=== PATIENT | female | born 1975 | race Caucasian/White ===

== ENCOUNTER 2021-05-22 17:19 | Emergency (ER) | payer MEDICAID ==
[~2021-05-22] VITALS: Ht 162.6 cm; Wt 60.0 kg
[2021-05-22 18:11] LABS: BASOPHILS % 0.6 % (0.0-2.0); EOSINOPHILS % 0.2 % (0.0-5.0); HEMOGLOBIN. 12.3 g/dL (12.0-16.0); LYMPHOCYTES % 37.3 % (20.0-50.0); MEAN CORPUSCULAR VOLUME 90.7 fL (81.0-99.0); MEAN PLATELET VOLUME 7.1 fl (7.4-10.4); NEUTROPHILS % 57.9 % (40.0-76.0); PLATELET 303 x1000/uL (130-400); RED BLOOD CELL COUNT 3.97 mill/uL (4.2-5.4); RED CELL DISTRIBUTION WIDTH 13.7 % (11.6-14.6)
[2021-05-22 18:19] LABS: CHLORIDE 112 mEq/L (98-107)
[2021-05-22 18:23] LABS: ETHANOL BLOOD 98 mg/dL; HCG SCREEN NEGATIVE
[2021-05-22 19:45] LABS: *AMPHETAMINES SCREEN URINE NEGATIVE (NEGATIVE); *BARBITURATES SCREEN URINE NEGATIVE (NEGATIVE); *BENZODIAZEPINES SCREEN URINE NEGATIVE (NEGATIVE)
[2021-05-22 19:47] LABS: CANNABINOID URINE SCREEN NEGATIVE (NEGATIVE); METHADONE URINE SCREEN NEGATIVE (NEGATIVE); OPIATES URINE SCREEN NEGATIVE (NEGATIVE); PHENCYCLIDINE URINE SCREEN NEGATIVE (NEGATIVE)
[2021-05-22 19:57] LABS: *COCAINE SCREEN URINE PRESUMTIVE POSITIVE (NEGATIVE)
[2021-05-22] MEDS ORDERED: ASPI-1497 MT (23:07)
[2021-05-22 23:40] VITALS: BP 101/64
== END 2021-05-22 23:43 | disposition home or self-care (01) ==
LOC: ER 17:19
DX: R07.89 Other chest pain (principal); F14.10 Cocaine abuse, uncomplicated; I10 Essential (primary) hypertension; Z79.82 Long term (current) use of aspirin; Z87.828 Personal history of other (healed) physical injury and trauma; Z98.890 Other specified postprocedural states
CPT/HCPCS: 36415; 71045; 80053; 80305; 80320; 83880; 84484; 84703; 85025; 93005; 99285; G0480

== ENCOUNTER 2021-10-25 22:14 | Emergency (ER) | payer MEDICAID ==
[~2021-10-25] VITALS: Ht 162.6 cm; Wt 90.0 kg
[~2021-10-25 22:14] MED LIST: ASPI-1497 MT
[2021-10-25 23:37] LABS: BASOPHILS % 0.7 % (0.0-2.0); EOSINOPHILS % 2.5 % (0.0-5.0); HEMATOCRIT. 36.3 % (36.0-48.0); LYMPHOCYTES % 45.9 % (20.0-50.0); MEAN CORPUSCULAR HEMOGLOBIN 30.5 pg (28.0-32.0); MEAN CORPUSCULAR VOLUME 92.2 fL (81.0-99.0); MEAN PLATELET VOLUME 7.5 fl (7.4-10.4); MONOCYTES % 6.1 % (2.0-8.0); NEUTROPHILS % 44.8 % (40.0-76.0); PLATELET 310 x1000/uL (130-400); RED BLOOD CELL COUNT 3.93 mill/uL (4.2-5.4); RED CELL DISTRIBUTION WIDTH 13.9 % (11.6-14.6)
[2021-10-25 23:42] LABS: CHLORIDE 109 mEq/L (98-107)
[2021-10-26 02:00] VITALS: BP 103/69
== END 2021-10-26 02:45 | disposition home or self-care (01) ==
LOC: ER 22:14
DX: R07.89 Other chest pain (principal); I10 Essential (primary) hypertension
CPT/HCPCS: 36415; 71045; 80053; 83880; 84484; 85025; 93005; 99285

== ENCOUNTER 2022-05-30 16:53 | Emergency (ER) | payer MEDICAID ==
[~2022-05-30] VITALS: Ht 167.6 cm; Wt 76.0 kg
[2022-05-30] MEDS ORDERED: IBUPROFEN 600MG TABLET PO STA (17:15)
[2022-05-30] MEDS ORDERED: NITROGLYCERIN OINT 1GM/INCH UDPKT TD ONE (17:15)
[2022-05-30 18:30] VITALS: BP 103/66
[2022-05-30 18:34] LABS: BASOPHILS % 0.6 % (0.0-2.0); EOSINOPHILS % 0.6 % (0.0-5.0); HEMOGLOBIN. 12.4 g/dL (12.0-16.0); MEAN CORPUSCULAR HEMOGLOBIN 30.5 pg (28.0-32.0); MEAN CORPUSCULAR VOLUME 91.1 fL (81.0-99.0); MEAN PLATELET VOLUME 8.2 fl (7.4-10.4); NEUTROPHILS % 57.8 % (40.0-76.0); PLATELET 301 x1000/uL (130-400); RED BLOOD CELL COUNT 4.06 mill/uL (4.2-5.4); RED CELL DISTRIBUTION WIDTH 13.8 % (11.6-14.6)
[2022-05-30 18:42] LABS: CHLORIDE 108 mEq/L (98-107)
[2022-05-30 18:45] LABS: HCG SCREEN NEGATIVE
[2022-05-30] MEDS ORDERED: IBUP-2028 MT (19:50)
== END 2022-05-30 20:13 | disposition home or self-care (01) ==
LOC: ER 16:53
DX: R07.89 Other chest pain (principal); I25.2 Old myocardial infarction; Z98.890 Other specified postprocedural states
CPT/HCPCS: 36415; 71045; 80053; 83880; 84484; 84703; 85025; 85379; 93970; 99285; Z7610

== ENCOUNTER 2022-09-20 18:08 | Emergency (ER) | payer MEDICAID ==
[~2022-09-20] VITALS: Ht 172.7 cm; Wt 73.0 kg
[~2022-09-20 18:08] MED LIST changes: +IBUP-2028 MT
[2022-09-20 18:10] VITALS: O2SAT 100
[2022-09-20] MEDS ORDERED: METHOCARBAMOL 500MG TABLET PO NR (18:45)
[2022-09-20] MEDS ORDERED: KETOROLAC 30MG/ML VIAL IV ONE (18:45)
[2022-09-20] MEDS ORDERED: METHOCARBAMOL 750MG TABLET PO SCH (18:45)
[2022-09-20] MEDS ORDERED: ACETAMINOPHEN 325MG TABLET PO ONE (18:45)
[2022-09-20 18:52] VITALS: TEMP 98.3
[2022-09-20 19:07] LABS: BASOPHILS % 1.2 % (0.0-2.0); EOSINOPHILS % 2.3 % (0.0-5.0); HEMATOCRIT. 34.8 % (36.0-48.0); HEMOGLOBIN. 11.7 g/dL (12.0-16.0); LYMPHOCYTES % 39.1 % (20.0-50.0); MEAN CORPUSCULAR HEMOGLOBIN 30.6 pg (28.0-32.0); MEAN CORPUSCULAR VOLUME 90.7 fL (81.0-99.0); MEAN PLATELET VOLUME 8.1 fl (7.4-10.4); MONOCYTES % 5.5 % (2.0-8.0); NEUTROPHILS % 51.9 % (40.0-76.0); PLATELET 308 x1000/uL (130-400); RED BLOOD CELL COUNT 3.84 mill/uL (4.2-5.4); RED CELL DISTRIBUTION WIDTH 13.3 % (11.6-14.6)
[2022-09-20 19:12] LABS: CHLORIDE 112 mEq/L (98-107)
[2022-09-20 19:15] LABS: D-DIMER 0.26 mg/L FEU (<0.50); INR 0.9; PROTHROMBIN TIME 10.2 sec (9.6-11.0)
[2022-09-20 19:23] LABS: ETHANOL BLOOD < 10 mg/dL (-10)
[2022-09-20 19:25] LABS: HCG SCREEN NEGATIVE
[2022-09-20 19:47] LABS: COLOR URINE YELLOW (YELLOW); KETONES URINE NEGATIVE (NEGATIVE); LEUKOCYTE ESTERASE URINE NEGATIVE (NEGATIVE); NITRITE URINE NEGATIVE (NEGATIVE); OCCULT BLOOD URINE 2+ (NEGATIVE); PH URINE 5.5 (4.5-8.0); PROTEIN URINE NEGATIVE (NEGATIVE); SPECIFIC GRAVITY URINE 1.009 (1.005-1.030); UROBILINOGEN URINE 0.2 E.U./dL (0.2-1.0)
[2022-09-20 20:00] VITALS: BP 102/64; PULSE 59; RESP 15
[2022-09-20 20:01] LABS: CLARITY URINE CLEAR (CLEAR)
[2022-09-20] MEDS ORDERED: TOPUD PO (20:14)
[2022-09-20] MEDS ORDERED: METH-653 MT (20:14)
[2022-09-20] MEDS ORDERED: LIDO1ADH23 TP (20:14)
[2022-09-20] MEDS ORDERED: NITR-87 MT (20:14)
[2022-09-20] MEDS ORDERED: IBUP-2028 MT (20:14)
[2022-09-20] MEDS ORDERED: NITROFURANTOIN 100MG M/M CAPSULE PO ONE (20:15)
[2022-09-20 20:16] LABS: *AMPHETAMINES SCREEN URINE NEGATIVE (NEGATIVE); *BARBITURATES SCREEN URINE NEGATIVE (NEGATIVE); *BENZODIAZEPINES SCREEN URINE NEGATIVE (NEGATIVE); CANNABINOID URINE SCREEN NEGATIVE (NEGATIVE); METHADONE URINE SCREEN NEGATIVE (NEGATIVE); OPIATES URINE SCREEN NEGATIVE (NEGATIVE); PHENCYCLIDINE URINE SCREEN NEGATIVE (NEGATIVE)
[2022-09-20 20:20] LABS: *COCAINE SCREEN URINE PRESUMTIVE POSITIVE (NEGATIVE)
== END 2022-09-20 20:32 | disposition home or self-care (01) ==
LOC: ER 18:08
DX: R07.89 Other chest pain (principal); N39.0 Urinary tract infection, site not specified; I25.2 Old myocardial infarction; Z79.899 Other long term (current) drug therapy; Z20.822 Contact with and (suspected) exposure to COVID-19
CPT/HCPCS: 80053; 80305; 81003; 81025; 80320; 84703; 83880; 83690; 85025; 85379; 85610; 84484; 87804 ×2; 36415; 71045; 93005; 96374; 99285; 87426; J1885; C9803; Z7610; G0480

== ENCOUNTER 2022-10-27 08:27 | Emergency (ER) | payer MEDICAID ==
[~2022-10-27] VITALS: Ht 157.5 cm; Wt 69.9 kg
[~2022-10-27 08:27] MED LIST changes: +LIDO1ADH23 TP; +METH-653 MT; +NITR-87 MT; +TOPUD PO
[2022-10-27 08:50] VITALS: TEMP 98; O2SAT 98
[2022-10-27 09:15] VITALS: BP 113/65; PULSE 99; RESP 16
[2022-10-27] MEDS ORDERED: IBUPROFEN 800MG TABLET PO ONE (09:15)
[2022-10-27] MEDS ORDERED: HYDROCODONE/ACETAMINOPHEN 10/325MG TABLET PO ONE (09:15)
[2022-10-27] MEDS ORDERED: IBUP-2030 MT (09:50)
[2022-10-28] MEDS ORDERED: AMOX1TAB16 MT (23:52)
[2022-10-28] MEDS ORDERED: NAPR-681 MT (23:52)
[2022-10-28] MEDS ORDERED: BO1 TP (23:52)
== END 2022-10-27 10:44 | disposition home or self-care (01) ==
LOC: ER 08:27
DX: S83.92XA Sprain of unspecified site of left knee, initial encounter (principal); I25.2 Old myocardial infarction; Z98.51 Tubal ligation status; Z90.49 Acquired absence of other specified parts of digestive tract; Z79.899 Other long term (current) drug therapy; W18.39XA Other fall on same level, initial encounter; Y93.89 Activity, other specified; Y92.89 Other specified places as the place of occurrence of the external cause; Y99.8 Other external cause status
CPT/HCPCS: 73562; 99283

== ENCOUNTER 2022-10-28 19:05 | Emergency (ER) | payer MEDICAID ==
[~2022-10-28] VITALS: Ht 167.6 cm; Wt 82.0 kg
[~2022-10-28 19:05] MED LIST changes: +IBUP-2030 MT
[2022-10-28 19:11] VITALS: BP 118/84; O2SAT 100
[2022-10-28] MEDS ORDERED: LIDOCAINE HCL 1% 20ML VIAL (Pyxis) INJ INFIL ONE (20:30)
[2022-10-28] MEDS ORDERED: TETANUS, DIPHTHERIA, PERTUSSIS VAC/PF 0.5ML (>10YR OLD) IM ONE (20:30)
[2022-10-28] MEDS ORDERED: HYDROCODONE/ACETAMINOPHEN 5/325MG TABLET PO ONE (20:30)
[2022-10-28] MEDS ORDERED: AMOXICILLIN/POTASSIUM CLAVULANATE 875/125MG TAB PO ONE (20:45)
[2022-10-28] MEDS ORDERED: BO1 TP (23:52)
[2022-10-28] MEDS ORDERED: NAPR-681 MT (23:52)
[2022-10-28] MEDS ORDERED: AMOX1TAB16 MT (23:52)
[2022-10-29 00:40] VITALS: PULSE 90; RESP 18; TEMP 98.6
== END 2022-10-29 00:44 | disposition home or self-care (01) ==
LOC: ER 19:48
DX: S51.812A Laceration without foreign body of left forearm, initial encounter (principal); I25.2 Old myocardial infarction; Z98.890 Other specified postprocedural states; Z90.49 Acquired absence of other specified parts of digestive tract; Z98.51 Tubal ligation status; W54.0XXA Bitten by dog, initial encounter; Y93.89 Activity, other specified; Y92.89 Other specified places as the place of occurrence of the external cause; Y99.8 Other external cause status
CPT/HCPCS: 81025; 73090; 90715; 12001; 90471; 99283; J3490; Z7610 ×2

== ENCOUNTER 2023-01-07 13:04 | Inpatient (IN) | payer SELFPAY ==
[~2023-01-07] VITALS: Ht 157.5 cm; Wt 70.0 kg
[~2023-01-07 13:04] MED LIST changes: +AMOX1TAB16 MT; +BO1 TP; +NAPR-681 MT
[2023-01-07 13:14] VITALS: BP 110/69; PULSE 60; RESP 16; TEMP 98.6; O2SAT 100
[2023-01-07 14:02] LABS: BASOPHILS % 0.7 % (0.0-2.0); EOSINOPHILS % 2.1 % (0.0-5.0); HEMATOCRIT. 36.4 % (36.0-48.0); HEMOGLOBIN. 12.3 g/dL (12.0-16.0); LYMPHOCYTES % 42.6 % (20.0-50.0); MEAN CORPUSCULAR HEMOGLOBIN 30.9 pg (28.0-32.0); MEAN CORPUSCULAR HGB CONC 33.9 g/dL (31.0-37.0); MEAN CORPUSCULAR VOLUME 91.1 fL (81.0-99.0); MEAN PLATELET VOLUME 7.1 fl (7.4-10.4); MONOCYTES % 4.8 % (2.0-8.0); NEUTROPHILS % 49.8 % (40.0-76.0); PLATELET 327 x1000/uL (130-400); RED BLOOD CELL COUNT 3.99 mill/uL (4.2-5.4); RED CELL DISTRIBUTION WIDTH 13.5 % (11.6-14.6); WHITE BLOOD COUNT 5.3 x1000/uL (4.5-11.0)
[2023-01-07 14:15] LABS: PROTHROMBIN TIME 10.5 sec (9.6-11.0)
[2023-01-07 14:16] LABS: CHLORIDE 110 mEq/L (98-107); INDEX HEMOLYSI 1 (1-3); INDEX ICTERIC 1 (1-4); INDEX LIPEMIC 1 (1-3); POTASSIUM 3.9 mEq/L (3.5-5.1); SODIUM 140 mEq/L (136-145)
[2023-01-07 14:26] LABS: ALANINE AMINOTRANSFERASE 29 IU/L (13-61); ALBUMIN 3.7 g/dL (3.4-5.0); ASPARTATE AMINOTRANSFERASE 22 IU/L (15-37); BILIRUBIN TOTAL 0.4 mg/dL (0.1-1.0); CALCIUM 9.1 mg/dL (8.5-10.1); CARBON DIOXIDE 27 mEq/L (21-32); CREATININE 0.9 mg/dL (0.6-1.3); GLUCOSE 108 mg/dL (70-105); PROTEIN TOTAL 7.9 g/dL (6.0-8.3); TROPONIN I HIGH SENSITIVITY 10 ng/L (<54); UREA NITROGEN BLOOD 11 mg/dL (7-21)
[2023-01-07] MEDS ORDERED: KETOROLAC 30MG/ML VIAL IV STA (15:42)
[2023-01-07] MEDS ORDERED: ASPIRIN 81MG TABLET PO ONE (15:45)
[2023-01-07] MEDS ORDERED: NITROGLYCERIN 0.4MG TABLET SL SL PRN (15:45)
[2023-01-07] MEDS ORDERED: SODIUM CHLORIDE 0.9% 1,000 ML IV ONE (15:45)
== END 2023-01-07 22:28 | disposition left against medical advice (07) | DRG 203 ==
LOC: ER 13:04 → EDBEDREQ 16:48 → ER 18:56 → MICUSO 22:28
PROVIDERS: ADMIT Internal Medicine; ATTEND Internal Medicine
DX: R07.89 Other chest pain (principal); F41.9 Anxiety disorder, unspecified; R51.9 Headache, unspecified; Z53.29 Procedure and treatment not carried out because of patient's decision for other reasons; Z90.49 Acquired absence of other specified parts of digestive tract; Z79.899 Other long term (current) drug therapy; Z82.49 Family history of ischemic heart disease and other diseases of the circulatory system
CPT/HCPCS: 36415; 71045; 80053; 84484; 85025; 93005; 99285; J1885; J7030

== ENCOUNTER 2023-01-10 14:02 | Emergency (ER) | payer SELFPAY ==
[~2023-01-10] VITALS: Ht 162.6 cm; Wt 74.0 kg
[2023-01-10 14:17] VITALS: BP 107/70; PULSE 62; RESP 19; O2SAT 99
[2023-01-10 15:36] LABS: BASOPHILS % 0.3 % (0.0-2.0); EOSINOPHILS % 2.3 % (0.0-5.0); HEMATOCRIT. 38.8 % (36.0-48.0); HEMOGLOBIN. 12.8 g/dL (12.0-16.0); LYMPHOCYTES % 26.9 % (20.0-50.0); MEAN CORPUSCULAR HEMOGLOBIN 30.3 pg (28.0-32.0); MEAN CORPUSCULAR HGB CONC 32.9 g/dL (31.0-37.0); MEAN CORPUSCULAR VOLUME 92.1 fL (81.0-99.0); MEAN PLATELET VOLUME 7.3 fl (7.4-10.4); MONOCYTES % 5.9 % (2.0-8.0); NEUTROPHILS % 64.6 % (40.0-76.0); PLATELET 292 x1000/uL (130-400); RED BLOOD CELL COUNT 4.22 mill/uL (4.2-5.4); RED CELL DISTRIBUTION WIDTH 13.5 % (11.6-14.6); WHITE BLOOD COUNT 4.6 x1000/uL (4.5-11.0)
[2023-01-10 15:44] LABS: CHLORIDE 107 mEq/L (98-107); HCG SCREEN NEGATIVE; INDEX HEMOLYSI 1 (1-3); INDEX ICTERIC 1 (1-4); INDEX LIPEMIC 1 (1-3); POTASSIUM 3.7 mEq/L (3.5-5.1); SODIUM 138 mEq/L (136-145)
[2023-01-10 15:54] LABS: ALANINE AMINOTRANSFERASE 32 IU/L (13-61); ALBUMIN 3.7 g/dL (3.4-5.0); ASPARTATE AMINOTRANSFERASE 26 IU/L (15-37); BILIRUBIN TOTAL 1.2 mg/dL (0.1-1.0); CALCIUM 8.7 mg/dL (8.5-10.1); CARBON DIOXIDE 28 mEq/L (21-32); CREATININE 0.7 mg/dL (0.6-1.3); GLUCOSE 99 mg/dL (70-105); PROTEIN TOTAL 7.8 g/dL (6.0-8.3); UREA NITROGEN BLOOD 14 mg/dL (7-21)
[2023-01-10 16:30] VITALS: TEMP 98
[2023-01-10] MEDS ORDERED: ACETAMINOPHEN 325MG TABLET PO ONE (16:30)
[2023-01-10] MEDS ORDERED: SODIUM CHLORIDE 0.9% 1,000 ML IV ONE (16:30)
[2023-01-10] MEDS ORDERED: METOCLOPRAMIDE HCL 10MG/2ML VIAL IV ONE (16:30)
[2023-01-10 17:19] LABS: CLARITY URINE CLEAR (CLEAR); COLOR URINE YELLOW (YELLOW); GLUCOSE URINE NEGATIVE (NEGATIVE); KETONES URINE NEGATIVE (NEGATIVE); LEUKOCYTE ESTERASE URINE NEGATIVE (NEGATIVE); NITRITE URINE NEGATIVE (NEGATIVE); OCCULT BLOOD URINE 3+ (NEGATIVE); PROTEIN URINE NEGATIVE (NEGATIVE); SPECIFIC GRAVITY URINE 1.013 (1.005-1.030)
[2023-01-10 17:21] LABS: BACTERIA URINE NONE SEEN; RBC URINE 25-50 /hpf (0-2); SQUAMOUS EPITHELIAL CELL URINE 1+ /lpf (RARE/1+); WBC URINE NONE SEEN /hpf (0-2); YEAST URINE NONE SEEN
== END 2023-01-10 20:08 | disposition home or self-care (01) ==
LOC: ER 14:02
DX: G43.909 Migraine, unspecified, not intractable, without status migrainosus (principal); F41.9 Anxiety disorder, unspecified; I25.2 Old myocardial infarction; Z90.49 Acquired absence of other specified parts of digestive tract; Z98.51 Tubal ligation status
CPT/HCPCS: 80053; 81003; 81025; 84703; 85025; 36415; 96361; 96374; 99283; J2765; J7030; Z7610 ×3

== ENCOUNTER 2023-02-21 14:24 | Emergency (ER) | payer MEDICAID ==
[~2023-02-21] VITALS: Ht 162.6 cm; Wt 60.0 kg
[2023-02-21 14:27] VITALS: O2SAT 96
[2023-02-21 14:58] LABS: BASOPHILS % 0.6 % (0.0-2.0); EOSINOPHILS % 0.3 % (0.0-5.0); HEMOGLOBIN. 12.7 g/dL (12.0-16.0); LYMPHOCYTES % 39.1 % (20.0-50.0); MEAN CORPUSCULAR HEMOGLOBIN 30.5 pg (28.0-32.0); MEAN CORPUSCULAR HGB CONC 33.3 g/dL (31.0-37.0); MEAN CORPUSCULAR VOLUME 91.5 fL (81.0-99.0); MEAN PLATELET VOLUME 7.3 fl (7.4-10.4); MONOCYTES % 4.4 % (2.0-8.0); NEUTROPHILS % 55.6 % (40.0-76.0); PLATELET 327 x1000/uL (130-400); RED BLOOD CELL COUNT 4.15 mill/uL (4.2-5.4); RED CELL DISTRIBUTION WIDTH 13.3 % (11.6-14.6); WHITE BLOOD COUNT 5.5 x1000/uL (4.5-11.0)
[2023-02-21] MEDS ORDERED: SODIUM CHLORIDE 0.9% 1,000 ML IV NR (15:00)
[2023-02-21] MEDS ORDERED: METOCLOPRAMIDE HCL 10MG/2ML VIAL IV ONE (15:00)
[2023-02-21] MEDS ORDERED: ACETAMINOPHEN 325MG TABLET PO NR (15:00)
[2023-02-21 15:10] LABS: HCG SCREEN NEGATIVE
[2023-02-21 15:16] LABS: ALANINE AMINOTRANSFERASE 21 IU/L (10-49); ALBUMIN 4.1 g/dL (3.2-4.8); ASPARTATE AMINOTRANSFERASE 30 IU/L (<34); BILIRUBIN TOTAL 0.5 mg/dL (0.1-1.0); CALCIUM 8.9 mg/dL (8.7-10.4); CARBON DIOXIDE 23 mEq/L (21-32); CHLORIDE 109 mEq/L (98-107); CREATININE 0.6 mg/dL (0.6-1.0); ETHANOL BLOOD 195 mg/dL (<10); GLUCOSE 95 mg/dL (70-105); POTASSIUM 3.5 mEq/L (3.5-5.1); PROTEIN TOTAL 7.6 g/dL (6.0-8.3); SODIUM 142 mEq/L (136-145); TROPONIN I HIGH SENSITIVITY 7 ng/L (3.0-34); UREA NITROGEN BLOOD 7 mg/dL (9-23)
[2023-02-21] MEDS ORDERED: METOCLOPRAMIDE HCL 10 MG in SODIUM CHLORIDE 0.9% 100 ML IV NR (15:30)
[2023-02-21 16:49] VITALS: BP 122/74; PULSE 71; RESP 17; TEMP 98.5
== END 2023-02-21 17:54 | disposition home or self-care (01) ==
LOC: ER 14:24
DX: F10.129 Alcohol abuse with intoxication, unspecified (principal); G43.909 Migraine, unspecified, not intractable, without status migrainosus; I25.2 Old myocardial infarction; F41.9 Anxiety disorder, unspecified; Z90.49 Acquired absence of other specified parts of digestive tract; Z98.51 Tubal ligation status
CPT/HCPCS: 80053; 80320; 84703; 85025; 84484; 36415; 71045; 93005; 96361; 96365; 99285; J2765; J7050; Z7610 ×4; G0480

== ENCOUNTER 2023-02-27 20:17 | Emergency (ER) | payer MEDICAID ==
[~2023-02-27] VITALS: Ht 172.7 cm; Wt 72.0 kg
[2023-02-27 20:19] VITALS: BP 118/74; PULSE 84; RESP 16; TEMP 98.7; O2SAT 100
== END 2023-02-27 23:12 | disposition left against medical advice (07) ==
LOC: ER 20:17
DX: Z53.21 Procedure and treatment not carried out due to patient leaving prior to being seen by health care provider (principal)
CPT/HCPCS: 99281; 99283

== ENCOUNTER 2023-06-27 20:46 | Inpatient (IN) | payer SELFPAY ==
[~2023-06-27] VITALS: Ht 165.1 cm; Wt 67.0 kg
[2023-06-27] MEDS: LORAZEPAM 1MG TABLET PO ONE (10:40)
[2023-06-27 23:00] LABS: CLARITY URINE CLEAR (CLEAR); COLOR URINE YELLOW (YELLOW); GLUCOSE URINE NEGATIVE (NEGATIVE); KETONES URINE NEGATIVE (NEGATIVE); LEUKOCYTE ESTERASE URINE NEGATIVE (NEGATIVE); NITRITE URINE NEGATIVE (NEGATIVE); OCCULT BLOOD URINE 2+ (NEGATIVE); PROTEIN URINE NEGATIVE (NEGATIVE); SPECIFIC GRAVITY URINE 1.004 (1.005-1.030); UROBILINOGEN URINE 0.2 E.U./dL (0.2-1.0)
[2023-06-27 23:01] LABS: BASOPHILS % 0.6 % (0.0-2.0); EOSINOPHILS % 0.3 % (0.0-5.0); HEMATOCRIT. 34.2 % (36.0-48.0); HEMOGLOBIN. 11.6 g/dL (12.0-16.0); LYMPHOCYTES % 24.7 % (20.0-50.0); MEAN CORPUSCULAR HEMOGLOBIN 31.5 pg (28.0-32.0); MEAN CORPUSCULAR HGB CONC 34.1 g/dL (31.0-37.0); MEAN CORPUSCULAR VOLUME 92.4 fL (81.0-99.0); MEAN PLATELET VOLUME 7.5 fl (7.4-10.4); NEUTROPHILS % 69.4 % (40.0-76.0); PLATELET 307 x1000/uL (130-400); RED CELL DISTRIBUTION WIDTH 13.6 % (11.6-14.6); WHITE BLOOD COUNT 5.7 x1000/uL (4.5-11.0)
[2023-06-27 23:09] LABS: *AMPHETAMINES SCREEN URINE NEGATIVE (NEGATIVE); *BARBITURATES SCREEN URINE NEGATIVE (NEGATIVE); *BENZODIAZEPINES SCREEN URINE NEGATIVE (NEGATIVE); *COCAINE SCREEN URINE PRESUMPTIVE POSITIVE (NEGATIVE); CANNABINOID URINE SCREEN NEGATIVE (NEGATIVE); D-DIMER 0.34 mg/L FEU (<0.50); ECSTASY MDMA SCREEN URINE NEGATIVE (NEGATIVE); METHADONE URINE SCREEN Neg (NEGATIVE); OPIATES URINE SCREEN NEGATIVE (NEGATIVE); PHENCYCLIDINE URINE SCREEN NEGATIVE (NEGATIVE); PROTHROMBIN TIME 10.7 sec (9.6-11.0)
[2023-06-27 23:16] LABS: HCG SCREEN NEGATIVE
[2023-06-27 23:19] LABS: ALANINE AMINOTRANSFERASE 21 IU/L (10-49); ALBUMIN 4.1 g/dL (3.2-4.8); ASPARTATE AMINOTRANSFERASE 24 IU/L (<34); BILIRUBIN TOTAL 0.4 mg/dL (0.1-1.0); CARBON DIOXIDE 21 mEq/L (21-32); CHLORIDE 109 mEq/L (98-107); CREATININE 0.6 mg/dL (0.6-1.0); ETHANOL BLOOD 67 mg/dL (<10); GLUCOSE 103 mg/dL (70-105); POTASSIUM 3.5 mEq/L (3.5-5.1); PROTEIN TOTAL 7.5 g/dL (6.0-8.3); SODIUM 140 mEq/L (136-145); TROPONIN I HIGH SENSITIVITY 7 ng/L (3.0-34); UREA NITROGEN BLOOD 13 mg/dL (9-23)
[2023-06-27 23:22] LABS: BACTERIA URINE TRACE; SQUAMOUS EPITHELIAL CELL URINE 1+ /lpf (RARE/1+); WBC URINE 0-2 /hpf (0-2)
[2023-06-28 00:55] LABS: TROPONIN I HIGH SENSITIVITY 10 ng/L (3.0-34)
[2023-06-28 20:00] VITALS: BP 94/53; PULSE 66; RESP 19; TEMP 97.4
[2023-06-28] MEDS ORDERED: ACETAMINOPHEN 325MG TABLET PO PRN (20:45)
[2023-06-28] MEDS ORDERED: ZOLPIDEM TARTRATE 5MG TABLET PO PRN (20:45)
[2023-06-28] MEDS ORDERED: HYDROCODONE/ACETAMINOPHEN 5/325MG TABLET PO PRN (20:45)
[2023-06-28] MEDS ORDERED: NALOXONE HCL 0.4MG/ML VIAL IV PRN (20:45)
[2023-06-28] MEDS: CHLORDIAZEPOXIDE 25MG CAPSULE PO SCH (20:54)
[2023-06-28] MEDS: ENOXAPARIN 40MG/0.4ML SYR SUBCUT SCH (20:58)
[2023-06-29] VITALS: BP 89/59; PULSE 60; RESP 15; TEMP 98.2
[2023-06-29 04:00] VITALS: BP 94/66; PULSE 65; RESP 15; TEMP 98.5
[2023-06-29 07:25] LABS: HEMATOCRIT 36.2 % (36.0-48.0); HEMOGLOBIN 12.2 g/dL (12.0-16.0); MEAN CORPUSCULAR HEMOGLOBIN 31.1 pg (28.0-32.0); MEAN CORPUSCULAR HGB CONC 33.7 g/dL (31.0-37.0); MEAN CORPUSCULAR VOLUME 92.4 fL (81.0-99.0); PLATELET 287 x1000/uL (130-400); RED BLOOD CELL COUNT 3.92 mill/uL (4.2-5.4); RED CELL DISTRIBUTION WIDTH 13.6 % (11.6-14.6); WHITE BLOOD COUNT 4.4 x1000/uL (4.5-11.0)
[2023-06-29 07:47] LABS: ALANINE AMINOTRANSFERASE 18 IU/L (10-49); ASPARTATE AMINOTRANSFERASE 23 IU/L (<34); BILIRUBIN TOTAL 0.4 mg/dL (0.1-1.0); CALCIUM 8.9 mg/dL (8.7-10.4); CARBON DIOXIDE 23 mEq/L (21-32); CHLORIDE 107 mEq/L (98-107); CREATININE 0.7 mg/dL (0.6-1.0); GLUCOSE 101 mg/dL (70-105); POTASSIUM 3.8 mEq/L (3.5-5.1); PROTEIN TOTAL 7.2 g/dL (6.0-8.3); SODIUM 137 mEq/L (136-145); TROPONIN I HIGH SENSITIVITY 6 ng/L (3.0-34); UREA NITROGEN BLOOD 19 mg/dL (9-23)
[2023-06-29 08:00] VITALS: BP 98/63; PULSE 61; RESP 20; TEMP 98
[2023-06-29] MEDS: ASPIRIN 81MG TABLET PO SCH (09:02)
[2023-06-29 12:11] VITALS: BP 98/63; PULSE 61; TEMP 98; O2SAT 100
== END 2023-06-29 16:30 | disposition home or self-care (01) | DRG 198 ==
LOC: ER 20:46 → 3WST 06-28 20:16
PROVIDERS: ADMIT Internal Medicine; ATTEND Internal Medicine
DX: R07.89 Other chest pain (principal); I24.9 Acute ischemic heart disease, unspecified; F10.129 Alcohol abuse with intoxication, unspecified; F14.90 Cocaine use, unspecified, uncomplicated; F41.9 Anxiety disorder, unspecified; G43.909 Migraine, unspecified, not intractable, without status migrainosus; I25.2 Old myocardial infarction; Z90.49 Acquired absence of other specified parts of digestive tract; Z82.49 Family history of ischemic heart disease and other diseases of the circulatory system
CPT/HCPCS: 36415; 71045; 80053; 80305; 80320; 81003; 84484; 84703; 85025; 85027; 85379; 93005; 93306; 99285; J1650; G0480

== ENCOUNTER 2023-09-15 13:56 | Inpatient (IN) | payer MEDICAID ==
[~2023-09-15] VITALS: Ht 167.6 cm; Wt 72.8 kg
[2023-09-15 14:33] LABS: BASOPHILS % 0.3 % (0.0-2.0); EOSINOPHILS % 1.9 % (0.0-5.0); HEMATOCRIT. 33.5 % (36.0-48.0); HEMOGLOBIN. 11.2 g/dL (12.0-16.0); MEAN CORPUSCULAR HEMOGLOBIN 31.1 pg (28.0-32.0); MEAN CORPUSCULAR HGB CONC 33.6 g/dL (31.0-37.0); MEAN CORPUSCULAR VOLUME 92.7 fL (81.0-99.0); MEAN PLATELET VOLUME 7.2 fl (7.4-10.4); MONOCYTES % 6.9 % (2.0-8.0); NEUTROPHILS % 75.9 % (40.0-76.0); PLATELET 291 x1000/uL (130-400); RED BLOOD CELL COUNT 3.61 mill/uL (4.2-5.4); RED CELL DISTRIBUTION WIDTH 13.9 % (11.6-14.6)
[2023-09-15 14:43] LABS: CARBON DIOXIDE 27 mEq/L (21-32); CHLORIDE 103 mEq/L (98-107); POTASSIUM 3.5 mEq/L (3.5-5.1); SODIUM 137 mEq/L (136-145)
[2023-09-15 14:44] LABS: CALCIUM 8.7 mg/dL (8.7-10.4)
[2023-09-15 14:48] LABS: CREATININE 0.8 mg/dL (0.6-1.0)
[2023-09-15 14:49] LABS: GLUCOSE 126 mg/dL (70-105); TROPONIN I HIGH SENSITIVITY 4 ng/L (3.0-34); UREA NITROGEN BLOOD 12 mg/dL (9-23)
[2023-09-15 14:50] LABS: ALANINE AMINOTRANSFERASE 43 IU/L (10-49); ALBUMIN 3.7 g/dL (3.2-4.8); ASPARTATE AMINOTRANSFERASE 53 IU/L (<34)
[2023-09-15 14:51] LABS: BILIRUBIN DIRECT 0.2 mg/dL (<=3.0); BILIRUBIN TOTAL 0.6 mg/dL (0.1-1.0); PROTEIN TOTAL 6.8 g/dL (6.0-8.3)
[2023-09-15 15:01] LABS: INR 0.9; PROTHROMBIN TIME 10.3 sec (9.6-11.0)
[2023-09-15 15:05] LABS: HCG SCREEN NEGATIVE
[2023-09-15] MEDS: ACETAMINOPHEN 325MG TABLET PO NR (16:05)
[2023-09-15 16:14] LABS: CLARITY URINE CLEAR (CLEAR); COLOR URINE DARK YELLOW (YELLOW); GLUCOSE URINE NEGATIVE (NEGATIVE); KETONES URINE TRACE (NEGATIVE); LEUKOCYTE ESTERASE URINE NEGATIVE (NEGATIVE); NITRITE URINE NEGATIVE (NEGATIVE); OCCULT BLOOD URINE 3+ (NEGATIVE); PROTEIN URINE 1+ (NEGATIVE); SPECIFIC GRAVITY URINE 1.029 (1.005-1.030)
[2023-09-15 16:28] LABS: BACTERIA URINE 1+
[2023-09-15 16:29] LABS: RBC URINE 50-100 /hpf (0-2); SQUAMOUS EPITHELIAL CELL URINE FEW /lpf (RARE/1+); WBC URINE 0-2 /hpf (0-2)
[2023-09-15] MEDS: CEFOXITIN SODIUM 1 G in DEXTROSE 5% WATER 50 ML IV SCH (17:52)
[2023-09-15] MEDS: MORPHINE SULFATE 4 MG/ML INJ (FOR IV/IM USE) IV NR (17:53)
[2023-09-15 17:57] LABS: TROPONIN I HIGH SENSITIVITY < 4 ng/L (3.0-34)
[2023-09-15] MEDS ORDERED: IPRATROPIUM/ALBUTEROL 0.5-3(2.5)MG/3ML NEB HHN PRN (19:15)
[2023-09-15] MEDS ORDERED: MORPHINE SULFATE 2 MG/ML INJ (NOT FOR IM USE) IV PRN (19:15)
[2023-09-15] MEDS ORDERED: DOCUSATE SODIUM 100MG CAPSULE PO PRN (19:15)
[2023-09-15] MEDS ORDERED: GUAIFENESIN 200MG/10ML SUGAR FREE UDC PO PRN (19:15)
[2023-09-15] MEDS ORDERED: MAGNESIUM/ALUMINUM HYDROXIDE/SIMETHICONE 30ML UDC PO PRN (19:15)
[2023-09-15] MEDS ORDERED: ACETAMINOPHEN 325MG TABLET PO PRN ×2 (19:15)
[2023-09-15] MEDS ORDERED: CLONIDINE 0.1MG TABLET PO PRN (19:15)
[2023-09-15] MEDS ORDERED: ONDANSETRON HCL 4MG/2ML INJ IV PRN (19:15)
[2023-09-15] MEDS: PANTOPRAZOLE SODIUM 40 MG/VIAL IV SCH (19:22)
[2023-09-15] MEDS ORDERED: DEXT 5%/0.45% NACL 1000ML 1,000 ML IV SCH (19:30)
[2023-09-15] MEDS: DEXT 5%/0.45% NACL 1000ML 1,000 ML IV SCH (19:31)
[2023-09-15] MEDS ORDERED: NALOXONE HCL 0.4MG/ML VIAL IV PRN (19:45)
[2023-09-15] MEDS: ENOXAPARIN 40MG/0.4ML SYR SUBCUT SCH (20:00)
[2023-09-15 22:28] LABS: TROPONIN I HIGH SENSITIVITY 4 ng/L (3.0-34)
[2023-09-15 22:29] LABS: CREATINE KINASE 44 IU/L (34-145)
[2023-09-16 02:18] VITALS: BP 116/64; PULSE 61; RESP 18; TEMP 96.1
[2023-09-16 04:00] VITALS: BP 134/69; PULSE 77; RESP 19; TEMP 97.6
[2023-09-16] MEDS: PIPERACILLIN/TAZO 3.375G/50ML 50 ML IV SCH (06:11)
[2023-09-16 07:13] LABS: CARBON DIOXIDE 26 mEq/L (21-32); CHLORIDE 103 mEq/L (98-107); POTASSIUM 3.5 mEq/L (3.5-5.1); SODIUM 136 mEq/L (136-145)
[2023-09-16 07:14] LABS: CALCIUM 8.6 mg/dL (8.7-10.4)
[2023-09-16 07:15] LABS: BASOPHILS % 0.7 % (0.0-2.0); EOSINOPHILS % 2.7 % (0.0-5.0); HEMATOCRIT. 33.2 % (36.0-48.0); HEMOGLOBIN. 11.2 g/dL (12.0-16.0); LYMPHOCYTES % 21.1 % (20.0-50.0); MEAN CORPUSCULAR HEMOGLOBIN 31.3 pg (28.0-32.0); MEAN CORPUSCULAR HGB CONC 33.6 g/dL (31.0-37.0); MEAN CORPUSCULAR VOLUME 93.3 fL (81.0-99.0); MEAN PLATELET VOLUME 7.9 fl (7.4-10.4); MONOCYTES % 6.3 % (2.0-8.0); NEUTROPHILS % 69.2 % (40.0-76.0); PLATELET 279 x1000/uL (130-400); RED BLOOD CELL COUNT 3.56 mill/uL (4.2-5.4); RED CELL DISTRIBUTION WIDTH 13.7 % (11.6-14.6); WHITE BLOOD COUNT 6.4 x1000/uL (4.5-11.0)
[2023-09-16 07:18] LABS: GLUCOSE 100 mg/dL (70-105); IRON 23 ug/dL (50-170); TROPONIN I HIGH SENSITIVITY 4 ng/L (3.0-34)
[2023-09-16 07:19] LABS: TRIGLYCERIDE 109 mg/dL (0-150); UREA NITROGEN BLOOD 7 mg/dL (9-23)
[2023-09-16 07:20] LABS: CREATINE KINASE 39 IU/L (34-145); LDL CHOLESTEROL 104 mg/dL (5-100)
[2023-09-16 07:21] LABS: CHOLESTEROL 176 mg/dL (<200); HDL CHOLESTEROL 54 mg/dL (>65); PHOSPHORUS 2.9 mg/dL (2.5-4.9); TOTAL IRON BINDING CAPACITY 351 ug/dl (250-425)
[2023-09-16 07:22] LABS: THYROID STIMULATING HORMONE 1.45 uIU/mL (0.55-4.78)
[2023-09-16 07:34] LABS: CREATININE 0.5 mg/dL (0.6-1.0)
[2023-09-16 08:00] VITALS: BP 102/58; PULSE 69; RESP 18; TEMP 97.9
[2023-09-16] MEDS: ASPIRIN 81MG TABLET PO SCH (09:30)
[2023-09-16] MEDS: HYDROCODONE/ACETAMINOPHEN 5/325MG TABLET PO PRN (11:06)
[2023-09-16 12:31] VITALS: BP 96/59; PULSE 60; RESP 18; TEMP 97.7
[2023-09-16 13:36] LABS: *AMPHETAMINES SCREEN URINE NEGATIVE (NEGATIVE); *BARBITURATES SCREEN URINE NEGATIVE (NEGATIVE); *COCAINE SCREEN URINE PRESUMPTIVE POSITIVE (NEGATIVE)
[2023-09-16 13:37] LABS: ECSTASY MDMA SCREEN URINE NEGATIVE (NEGATIVE); METHADONE URINE SCREEN NEGATIVE (NEGATIVE); OPIATES URINE SCREEN NEGATIVE (NEGATIVE); PHENCYCLIDINE URINE SCREEN NEGATIVE (NEGATIVE)
[2023-09-16 16:00] VITALS: BP 98/59; PULSE 55; RESP 18; TEMP 98.1
[2023-09-16] MEDS: LACTATED RINGERS 500 ML IV ONE (17:05)
[2023-09-16] MEDS: DICYCLOMINE HCL 10MG CAPSULE PO SCH (18:58)
[2023-09-16 19:09] LABS: *AMPHETAMINES SCREEN URINE NEGATIVE (NEGATIVE); *BARBITURATES SCREEN URINE NEGATIVE (NEGATIVE); *BENZODIAZEPINES SCREEN URINE NEGATIVE (NEGATIVE)
[2023-09-16 19:10] LABS: CANNABINOID URINE SCREEN NEGATIVE (NEGATIVE); ECSTASY MDMA SCREEN URINE NEGATIVE (NEGATIVE); METHADONE URINE SCREEN NEGATIVE (NEGATIVE); OPIATES URINE SCREEN PRESUMPTIVE POSITIVE (NEGATIVE); PHENCYCLIDINE URINE SCREEN NEGATIVE (NEGATIVE)
[2023-09-16 19:18] LABS: *COCAINE SCREEN URINE PRESUMPTIVE POSITIVE (NEGATIVE)
[2023-09-16] MEDS: DEXT 5%/LACTATED RINGERS 1,000 ML IV SCH (21:58)
[2023-09-17 07:30] LABS: CHLORIDE 106 mEq/L (98-107); POTASSIUM 3.7 mEq/L (3.5-5.1); SODIUM 139 mEq/L (136-145)
[2023-09-17 07:31] LABS: CARBON DIOXIDE 27 mEq/L (21-32)
[2023-09-17 07:36] LABS: CREATININE 0.7 mg/dL (0.6-1.0); GLUCOSE 97 mg/dL (70-105); UREA NITROGEN BLOOD 7 mg/dL (9-23)
[2023-09-17 08:02] LABS: HEMATOCRIT 33.9 % (36.0-48.0); HEMOGLOBIN 11.4 g/dL (12.0-16.0); MEAN CORPUSCULAR HEMOGLOBIN 31.6 pg (28.0-32.0); MEAN CORPUSCULAR HGB CONC 33.6 g/dL (31.0-37.0); MEAN CORPUSCULAR VOLUME 93.9 fL (81.0-99.0); PLATELET 314 x1000/uL (130-400); RED BLOOD CELL COUNT 3.61 mill/uL (4.2-5.4); RED CELL DISTRIBUTION WIDTH 13.5 % (11.6-14.6); WHITE BLOOD COUNT 3.7 x1000/uL (4.5-11.0)
[2023-09-17 08:32] LABS: FOLIC ACID (FOLATE) SERUM 17.74 ng/mL (>5.38); VITAMIN B12 SERUM 696 pg/mL (211-911)
[2023-09-17] MEDS: FAMOTIDINE 20MG/2ML VIAL IV SCH (09:00)
[2023-09-17 20:00] VITALS: BP 97/56; PULSE 64; RESP 18; TEMP 97.9
[2023-09-18 06:41] LABS: HEMATOCRIT 33.9 % (36.0-48.0); HEMOGLOBIN 11.4 g/dL (12.0-16.0); MEAN CORPUSCULAR HEMOGLOBIN 31.3 pg (28.0-32.0); MEAN CORPUSCULAR HGB CONC 33.6 g/dL (31.0-37.0); MEAN CORPUSCULAR VOLUME 92.9 fL (81.0-99.0); PLATELET 317 x1000/uL (130-400); RED BLOOD CELL COUNT 3.65 mill/uL (4.2-5.4); RED CELL DISTRIBUTION WIDTH 13.4 % (11.6-14.6); WHITE BLOOD COUNT 4.1 x1000/uL (4.5-11.0)
[2023-09-18 07:22] LABS: CALCIUM 9.3 mg/dL (8.7-10.4); CARBON DIOXIDE 23 mEq/L (21-32); CHLORIDE 106 mEq/L (98-107); POTASSIUM 3.7 mEq/L (3.5-5.1); SODIUM 137 mEq/L (136-145)
[2023-09-18 07:28] LABS: CREATININE 0.6 mg/dL (0.6-1.0); GLUCOSE 93 mg/dL (70-105); UREA NITROGEN BLOOD 10 mg/dL (9-23)
[2023-09-18 07:30] LABS: PHOSPHORUS 4.5 mg/dL (2.5-4.9)
[2023-09-18 08:00] VITALS: BP 105/58; PULSE 68; RESP 16; TEMP 98.9
[2023-09-18] MEDS: MAGNESIUM 2 G PREMIX 50 ML IV NR (09:49)
[2023-09-18 12:00] VITALS: BP 108/72; PULSE 68; RESP 16; TEMP 97.8
[2023-09-18 16:00] VITALS: BP 105/62; PULSE 62; RESP 16; TEMP 97.8
[2023-09-18] MEDS ORDERED: AMOX1TAB16 PO (16:06)
[2023-09-18 16:42] VITALS: BP 135/78; PULSE 82; TEMP 98.9; O2SAT 95
== END 2023-09-18 17:45 | disposition home or self-care (01) | DRG 244 ==
LOC: ER 13:56 → EDBEDREQ 18:56 → 5WST 21:10 → 6EST 22:29
PROVIDERS: ADMIT Preventive Medicine Clinical Informatics; ATTEND Preventive Medicine Clinical Informatics
DX: K57.32 Diverticulitis of large intestine without perforation or abscess without bleeding (principal); D64.9 Anemia, unspecified; G43.909 Migraine, unspecified, not intractable, without status migrainosus; F14.10 Cocaine abuse, uncomplicated; F41.9 Anxiety disorder, unspecified; Z82.49 Family history of ischemic heart disease and other diseases of the circulatory system; Z98.51 Tubal ligation status; Z90.49 Acquired absence of other specified parts of digestive tract; I25.2 Old myocardial infarction; Z79.899 Other long term (current) drug therapy
CPT/HCPCS: 36415; 71045; 74176; 80048; 80061; 80076; 80305; 80320; 81003; 82550; 82607; 82728; 82746; 83540; 83550; 83735; 83880; 84100; 84439; 84443; 84484; 84703; 85025; 85027; 93005; 93306; 93970; 99285; C9113; J0694; J1650; J2270; J2405; J2543; J3475; J3490; J7060; J7121; G0480

== ENCOUNTER 2023-09-28 22:35 | Emergency (ER) | payer MEDICAID ==
[~2023-09-28] VITALS: Ht 170.2 cm; Wt 70.0 kg
[~2023-09-28 22:35] MED LIST changes: -AMOX1TAB16 MT; +AMOX1TAB16 PO; -IBUP-2028 MT; -IBUP-2030 MT; -LIDO1ADH23 TP; -NAPR-681 MT; -NITR-87 MT
[2023-09-28 23:00] VITALS: BP 122/79; PULSE 115; RESP 18; TEMP 98.5; O2SAT 98
== END 2023-09-29 01:42 | disposition left against medical advice (07) ==
LOC: ER 22:35
DX: R07.9 Chest pain, unspecified (principal)
CPT/HCPCS: 99283

== ENCOUNTER 2023-10-17 01:19 | Emergency (ER) | payer MEDICAID ==
[~2023-10-17] VITALS: Ht 165.1 cm; Wt 71.0 kg
[~2023-10-17 01:19] MED LIST changes: -AMOX1TAB16 PO; +ATOR20TA MT
[2023-10-17 01:31] VITALS: O2SAT 98
[2023-10-17 02:05] VITALS: BP 104/69; PULSE 86; RESP 24; TEMP 98.3
[2023-10-17] MEDS: ACETAMINOPHEN 325MG TABLET PO STA (02:44)
== END 2023-10-17 06:37 | disposition left against medical advice (07) ==
LOC: ER 01:19
DX: R07.89 Other chest pain (principal); F14.10 Cocaine abuse, uncomplicated; Z98.890 Other specified postprocedural states
CPT/HCPCS: 71045; 99283

== ENCOUNTER 2023-11-14 01:57 | Emergency (ER) | payer MEDICAID ==
[~2023-11-14] VITALS: Ht 165.1 cm; Wt 73.0 kg
[2023-11-14 02:04] VITALS: O2SAT 100
[2023-11-14 02:56] LABS: BASOPHILS % 0.6 % (0.0-2.0); EOSINOPHILS % 0.5 % (0.0-5.0); HEMATOCRIT. 36.9 % (36.0-48.0); HEMOGLOBIN. 12.5 g/dL (12.0-16.0); LYMPHOCYTES % 31.3 % (20.0-50.0); MEAN CORPUSCULAR HEMOGLOBIN 31.4 pg (28.0-32.0); MEAN CORPUSCULAR HGB CONC 33.8 g/dL (31.0-37.0); MEAN CORPUSCULAR VOLUME 93.1 fL (81.0-99.0); MEAN PLATELET VOLUME 7.6 fl (7.4-10.4); MONOCYTES % 5.3 % (2.0-8.0); NEUTROPHILS % 62.3 % (40.0-76.0); PLATELET 278 x1000/uL (130-400); RED BLOOD CELL COUNT 3.97 mill/uL (4.2-5.4); RED CELL DISTRIBUTION WIDTH 13.5 % (11.6-14.6); WHITE BLOOD COUNT 4.9 x1000/uL (4.5-11.0)
[2023-11-14] MEDS: MAGNESIUM/ALUMINUM HYDROXIDE/SIMETHICONE 30ML UDC PO ONE (02:56)
[2023-11-14] MEDS: SODIUM CHLORIDE 0.9% 500 ML IV ONE (02:56)
[2023-11-14 02:57] VITALS: BP 128/86; PULSE 110; RESP 18; TEMP 36.83628; O2SAT 99
[2023-11-14 02:59] LABS: CARBON DIOXIDE 21 mEq/L (21-32); CHLORIDE 112 mEq/L (98-107); POTASSIUM 3.6 mEq/L (3.5-5.1); SODIUM 140 mEq/L (136-145)
[2023-11-14 03:00] LABS: CALCIUM 9.1 mg/dL (8.7-10.4)
[2023-11-14 03:01] LABS: HCG SCREEN NEGATIVE
[2023-11-14 03:05] LABS: CREATININE 0.8 mg/dL (0.6-1.0); ETHANOL BLOOD 150 mg/dL (<10); GLUCOSE 113 mg/dL (70-105); TROPONIN I HIGH SENSITIVITY 4 ng/L (3.0-34); UREA NITROGEN BLOOD 13 mg/dL (9-23)
[2023-11-14 03:06] LABS: ALANINE AMINOTRANSFERASE 19 IU/L (10-49); ALBUMIN 4.5 g/dL (3.2-4.8); ASPARTATE AMINOTRANSFERASE 25 IU/L (<34); BILIRUBIN DIRECT 0.1 mg/dL (<=3.0); BILIRUBIN TOTAL 0.4 mg/dL (0.1-1.0); PROTEIN TOTAL 7.4 g/dL (6.0-8.3)
[2023-11-14] MEDS: VISCOUS LIDOCAINE 2% 15 ML UDC PO NR (03:06)
[2023-11-14 03:07] LABS: ACETAMINOPHEN < 2 ug/mL (10-30)
[2023-11-14] MEDS ORDERED: MAG355OR21 MT (04:36)
== END 2023-11-14 04:53 | disposition home or self-care (01) ==
LOC: ER 01:57
DX: K29.20 Alcoholic gastritis without bleeding (principal); F10.21 Alcohol dependence, in remission; Z98.890 Other specified postprocedural states; F14.90 Cocaine use, unspecified, uncomplicated; Z79.899 Other long term (current) drug therapy; Y90.6 Blood alcohol level of 120-199 mg/100 ml
CPT/HCPCS: 80076; 80048; 80307; 80329; 80320; 84703; 83690; 85025; 84484; 36415; 71045; 93005; 96360; 99285; J7040; G0480

== ENCOUNTER 2024-08-18 23:43 | Emergency (ER) | payer MEDICAID ==
[~2024-08-18 23:43] MED LIST changes: +MAG355OR21 MT
[2024-08-18 23:55] VITALS: PULSE 119; RESP 20; O2SAT 97
== END 2024-08-19 00:31 | disposition left against medical advice (07) ==
LOC: ER 23:43
DX: R07.89 Other chest pain (principal); Z53.21 Procedure and treatment not carried out due to patient leaving prior to being seen by health care provider

== ENCOUNTER 2024-09-03 00:06 | Emergency (ER) | payer MEDICAID ==
[~2024-09-03] VITALS: Ht 157.5 cm; Wt 69.9 kg
[2024-09-03 00:16] VITALS: PULSE 81; RESP 16; O2SAT 100
[2024-09-03 00:39] LABS: BASOPHILS % 0.5 % (0.0-2.0); EOSINOPHILS % 1.7 % (0.0-5.0); HEMATOCRIT. 34.4 % (36.0-48.0); HEMOGLOBIN. 11.8 g/dL (12.0-16.0); LYMPHOCYTES % 31.6 % (20.0-50.0); MEAN CORPUSCULAR HEMOGLOBIN 31.5 pg (28.0-32.0); MEAN CORPUSCULAR HGB CONC 34.3 g/dL (31.0-37.0); MEAN CORPUSCULAR VOLUME 91.9 fL (81.0-99.0); MEAN PLATELET VOLUME 7.3 fl (7.4-10.4); MONOCYTES % 6.4 % (2.0-8.0); NEUTROPHILS % 59.8 % (40.0-76.0); PLATELET 308 x1000/uL (130-400); RED BLOOD CELL COUNT 3.75 mill/uL (4.2-5.4); RED CELL DISTRIBUTION WIDTH 13.7 % (11.6-14.6); WHITE BLOOD COUNT 6.7 x1000/uL (4.5-11.0)
[2024-09-03 00:43] LABS: CHLORIDE 105 mEq/L (98-107); POTASSIUM 3.6 mEq/L (3.5-5.1); SODIUM 139 mEq/L (136-145)
[2024-09-03 00:44] LABS: CARBON DIOXIDE 24 mEq/L (21-32)
[2024-09-03 00:50] LABS: CREATININE 0.7 mg/dL (0.6-1.0); GLUCOSE 109 mg/dL (70-105); TROPONIN I HIGH SENSITIVITY 5 ng/L (3.0-34); UREA NITROGEN BLOOD 17 mg/dL (9-23)
[2024-09-03 00:54] VITALS: BP 111/78; TEMP 36.7; O2SAT 99
[2024-09-03] MEDS: ACETAMINOPHEN 325MG TABLET PO STA (01:45)
== END 2024-09-03 03:53 | disposition left against medical advice (07) ==
LOC: ER 00:06
DX: R07.89 Other chest pain (principal); F14.90 Cocaine use, unspecified, uncomplicated; I25.2 Old myocardial infarction; Z79.899 Other long term (current) drug therapy; Z79.82 Long term (current) use of aspirin
CPT/HCPCS: 36415; 71045; 80048; 84484; 85025; 93005; 99285